=== PATIENT | male | born 1950 | race Hispanic/Latino ===

== ENCOUNTER → 2019-02-15 | Outpatient (CLI) | payer OTHER, MEDICARE ==
[~2019-02-15] MED LIST: HONEY 1 APPL/ML TUBE TP ONE; LIDOCAINE/PRILOCAINE CREAM 5GM TUBE TP ONE
[2019-02-15 11:53] VITALS: BP 155/69
== END | disposition home or self-care (01) ==
LOC: WHH 08:45
PROVIDERS: ATTEND Podiatrist Foot & Ankle Surgery
DX: E11.621 Type 2 diabetes mellitus with foot ulcer (principal); L97.521 Non-pressure chronic ulcer of other part of left foot limited to breakdown of skin; L97.421 Non-pressure chronic ulcer of left heel and midfoot limited to breakdown of skin; E11.40 Type 2 diabetes mellitus with diabetic neuropathy, unspecified; I25.10 Atherosclerotic heart disease of native coronary artery without angina pectoris
CPT/HCPCS: A4450; G0463; J3490; L3260

== ENCOUNTER → 2019-02-27 | Outpatient (CLI) | payer OTHER, MEDICARE | END | disposition home or self-care (01) | LOC: WHH 14:45 | PROVIDERS: ATTEND Podiatrist Foot & Ankle Surgery | DX: E11.621 Type 2 diabetes mellitus with foot ulcer (principal); L97.421 Non-pressure chronic ulcer of left heel and midfoot limited to breakdown of skin; L97.521 Non-pressure chronic ulcer of other part of left foot limited to breakdown of skin; I25.10 Atherosclerotic heart disease of native coronary artery without angina pectoris; E11.40 Type 2 diabetes mellitus with diabetic neuropathy, unspecified | CPT/HCPCS: 93923; G0463 ==

== ENCOUNTER → 2019-03-01 | Outpatient (CLI) | payer OTHER, MEDICARE ==
[~2019-03-01] MED LIST changes: -HONEY 1 APPL/ML TUBE TP ONE
[2019-03-01 13:41] VITALS: BP 148/63
== END | disposition home or self-care (01) ==
LOC: WHH 08:30
PROVIDERS: ATTEND Podiatrist Foot & Ankle Surgery
DX: E11.621 Type 2 diabetes mellitus with foot ulcer (principal); L97.522 Non-pressure chronic ulcer of other part of left foot with fat layer exposed; L97.421 Non-pressure chronic ulcer of left heel and midfoot limited to breakdown of skin; I25.10 Atherosclerotic heart disease of native coronary artery without angina pectoris; E11.40 Type 2 diabetes mellitus with diabetic neuropathy, unspecified
CPT/HCPCS: 11042; J3490

== ENCOUNTER → 2019-03-08 | Outpatient (CLI) | payer OTHER, MEDICARE ==
[2019-03-08 13:28] VITALS: BP 153/68
== END | disposition home or self-care (01) ==
LOC: WHH 08:30
PROVIDERS: ATTEND Podiatrist Foot & Ankle Surgery
DX: E11.621 Type 2 diabetes mellitus with foot ulcer (principal); L97.521 Non-pressure chronic ulcer of other part of left foot limited to breakdown of skin; L97.421 Non-pressure chronic ulcer of left heel and midfoot limited to breakdown of skin; I25.10 Atherosclerotic heart disease of native coronary artery without angina pectoris; E11.40 Type 2 diabetes mellitus with diabetic neuropathy, unspecified; E11.51 Type 2 diabetes mellitus with diabetic peripheral angiopathy without gangrene; Z87.891 Personal history of nicotine dependence
CPT/HCPCS: G0463

== ENCOUNTER → 2019-03-22 | Outpatient (CLI) | payer OTHER, MEDICARE ==
[2019-03-22 12:03] VITALS: BP 143/63
== END | disposition home or self-care (01) ==
LOC: WHH 08:45
PROVIDERS: ATTEND Podiatrist Foot & Ankle Surgery
DX: E11.621 Type 2 diabetes mellitus with foot ulcer (principal); L97.521 Non-pressure chronic ulcer of other part of left foot limited to breakdown of skin; L97.422 Non-pressure chronic ulcer of left heel and midfoot with fat layer exposed; I25.10 Atherosclerotic heart disease of native coronary artery without angina pectoris; E11.40 Type 2 diabetes mellitus with diabetic neuropathy, unspecified; E11.51 Type 2 diabetes mellitus with diabetic peripheral angiopathy without gangrene; Z87.891 Personal history of nicotine dependence
CPT/HCPCS: 11042; J3490

== ENCOUNTER → 2019-04-04 | Outpatient (CLI) | payer OTHER, MEDICARE | END | disposition home or self-care (01) | LOC: SHCH 08:34 | PROVIDERS: ATTEND Internal Medicine Cardiovascular Disease | DX: I87.2 Venous insufficiency (chronic) (peripheral) (principal); I70.292 Other atherosclerosis of native arteries of extremities, left leg; I70.201 Unspecified atherosclerosis of native arteries of extremities, right leg | CPT/HCPCS: 93925; 93970 ==

== ENCOUNTER → 2019-04-12 | Outpatient (CLI) | payer OTHER, MEDICARE ==
[2019-04-12 13:09] VITALS: BP 145/59
== END | disposition home or self-care (01) ==
LOC: WHH 08:00
PROVIDERS: ATTEND Podiatrist Foot & Ankle Surgery
DX: E11.621 Type 2 diabetes mellitus with foot ulcer (principal); L97.521 Non-pressure chronic ulcer of other part of left foot limited to breakdown of skin; L97.421 Non-pressure chronic ulcer of left heel and midfoot limited to breakdown of skin; E11.40 Type 2 diabetes mellitus with diabetic neuropathy, unspecified; E11.51 Type 2 diabetes mellitus with diabetic peripheral angiopathy without gangrene; I87.2 Venous insufficiency (chronic) (peripheral); I25.10 Atherosclerotic heart disease of native coronary artery without angina pectoris; Z87.891 Personal history of nicotine dependence
CPT/HCPCS: G0463; J3490

== ENCOUNTER → 2019-04-19 | Outpatient (CLI) | payer OTHER, MEDICARE ==
[2019-04-19 13:41] VITALS: BP 159/57
== END | disposition home or self-care (01) ==
LOC: WHH 08:35
PROVIDERS: ATTEND Podiatrist Foot & Ankle Surgery
DX: E11.621 Type 2 diabetes mellitus with foot ulcer (principal); L97.521 Non-pressure chronic ulcer of other part of left foot limited to breakdown of skin; L97.421 Non-pressure chronic ulcer of left heel and midfoot limited to breakdown of skin; E11.51 Type 2 diabetes mellitus with diabetic peripheral angiopathy without gangrene; E11.40 Type 2 diabetes mellitus with diabetic neuropathy, unspecified; I87.2 Venous insufficiency (chronic) (peripheral); I25.10 Atherosclerotic heart disease of native coronary artery without angina pectoris; Z87.891 Personal history of nicotine dependence
CPT/HCPCS: G0463; J3490

== ENCOUNTER → 2019-05-03 | Outpatient (CLI) | payer OTHER, MEDICARE ==
[2019-05-03 13:28] VITALS: BP 152/59
== END | disposition home or self-care (01) ==
LOC: WHH 08:25
PROVIDERS: ATTEND Podiatrist Foot & Ankle Surgery
DX: E11.621 Type 2 diabetes mellitus with foot ulcer (principal); L97.521 Non-pressure chronic ulcer of other part of left foot limited to breakdown of skin; L97.421 Non-pressure chronic ulcer of left heel and midfoot limited to breakdown of skin; E11.51 Type 2 diabetes mellitus with diabetic peripheral angiopathy without gangrene; E11.40 Type 2 diabetes mellitus with diabetic neuropathy, unspecified; I87.2 Venous insufficiency (chronic) (peripheral); I25.10 Atherosclerotic heart disease of native coronary artery without angina pectoris; Z87.891 Personal history of nicotine dependence; Z85.46 Personal history of malignant neoplasm of prostate
CPT/HCPCS: G0463

== ENCOUNTER → 2019-05-09 | Outpatient (CLI) | payer OTHER, MEDICARE ==
[~2019-05-09] VITALS: Ht 167.6 cm; Wt 58.5 kg
[~2019-05-09] MED LIST changes: -LIDOCAINE/PRILOCAINE CREAM 5GM TUBE TP ONE; +REGADENOSON 0.4 MG/5 ML PF SYG IVP SCH
== END | disposition home or self-care (01) ==
LOC: SHCH 08:25
PROVIDERS: ATTEND Internal Medicine Cardiovascular Disease
DX: I25.89 Other forms of chronic ischemic heart disease (principal); I20.9 Angina pectoris, unspecified
CPT/HCPCS: 78452; 93017; 96374; A9500 ×2; J2785

== ENCOUNTER 2019-06-05 05:37 | Day surgery (SDC) | payer OTHER, MEDICARE ==
[2019-06-02 11:30] VITALS: BP 150/57
[2019-06-02 12:02] LABS: EOSINOPHILS % (AUTO) 0.4 % (0.0-8.0); HEMATOCRIT 34.3 % (42-54); LYMPHOCYTES % (AUTO) 10.7 % (21.0-51.0); MEAN CORPUSCULAR HEMOGLOBIN 27.7 pg (27.0-33.0); MEAN CORPUSCULAR HGB CONC 33.5 g/dL (32.0-36.0); MEAN CORPUSCULAR VOLUME 82.7 fL (79-99); NEUTROPHILS % (AUTO) 79.9 % (40.0-77.0); PLATELET COUNT (AUTO) 414 K/uL (130-400); RED BLOOD CELL COUNT(AUTO) 4.15 MIL/uL (4.50-6.20); RED CELL DISTRIBUTION WIDTH 14.4 % (11.0-15.5); WHITE BLOOD COUNT (AUTO) 12.8 K/uL (4.8-10.8)
[2019-06-02 12:10] LABS: CREATININE 0.7 mg/dL (0.5-1.5); POTASSIUM 5.5 mmol/L (3.5-5.1)
[2019-06-02 12:19] LABS: INR 1.1 (0.85-1.15); PARTIAL THROMBOPLASTIN TIME 33.9 SEC (26.3-35.5); PROTHROMBIN TIME 11.5 SEC (9.6-11.6)
[2019-06-02 12:50] LABS: APPEARANCE,URINE Clear (CLEAR); BILIRUBIN,URINE Negative (NEGATIVE); COLOR,URINE Yellow (YELLOW); GLUCOSE, URINE (UA) Negative (NEGATIVE); KETONES,URINE Negative (NEGATIVE); LEUKOCYTE ESTERASE ,URINE Trace (NEGATIVE); NITRATE,URINE Negative (NEGATIVE); OCCULT BLOOD,URINE Negative (NEGATIVE); PH,URINE 7.5 (5.0-8.0); PROTEIN,URINE Negative (NEGATIVE)
[2019-06-02 13:11] LABS: BACTERIA,URINE Rare /HPF (None Seen); RBC,URINE 0-1 /HPF (0-1); SQUAMOUS EPITHELIAL CELL,UR 0-2 /HPF (0-2); WBC,URINE 0-1 /HPF (0-1)
--- NOTE | 2019-06-02 14:30 | NUR ---
ANTIBIOTIC DR. WONG REVIEWED PT'S MED REC, AWARE PT IS TAKING ANTIBIOTICS.
--- NOTE | 2019-06-02 14:31 | NUR ---
LABS ABNORMAL LABS REPORTED TO DR. Deven WONG , FURTHER ORDERS GIVEN AND WILL BE Carried out.
--- NOTE | 2019-06-02 16:33 | NUR ---
CONTACT PREC ISABEL OLIVERA INFECTION CONTROL NOTIFIED OF PT'S LEFT FOOT ULCER, COVERED, PER PT DRY AND NOT DRAINING, NO KNOWN HX OF MDRO'S, TREAT[place] [facility]. PER ISABEL, PLACE PT FOR CONTACT PRECAUTION, PROPHYLACTIC, WILL CALL WOUND CARE CENTER FOR ANY CULTURE RESULTS. JAROD [employer]ENDIZ OF [employer] COORDINATOR ALSO NOTIFIED.
[2019-06-05] VITALS (19 sets, daily range): BP systolic 139–161; BP diastolic 50–78
[~2019-06-05] VITALS: Ht 165.1 cm; Wt 54.4 kg
[~2019-06-05 05:37] MED LIST changes: +ACET-2743 PO; +ASPI-449 PO; +ATOR10TA69 PO; +CEPH500C2 PO; +DUTA0.5C17 PO; +GABA-531 PO; +IBUP200C5 PO; +LEVO750T46 PO; +METF-444 PO; +NAPR-1192 PO; -REGADENOSON 0.4 MG/5 ML PF SYG IVP SCH
--- NOTE | 2019-06-05 06:08 | NUR ---
PRE-PROCEDURE RECEIVED FROM HOME VIA W/C FOR SCHEDULED PERIPHERAL ANGIOGRAM/CSI TO LLE VIA [facility]FA APPROACH TO DAY 16. AWAKE IN NO ACUTE DISTRESS. C/O OF PAIN TO LEFT FOOT WHEN LYING FLAT, BUT IMPROVES WHEN SITTING ON EDGE OF BED. EXPLAINED TO PT AND FAMILY IN DETAIL THAT PT WOULD BE ON STRICT BEDREST AFTER PROCEDURE AND WOULD NOT BE ABLE SIT UP. VERBALIZED UNDERSTANDING. NON-HEALING WOULD PRESENT TO LEFT FOOT; DRESSING CLEAN, DRY, AND INTACT;HEEL PROTECTOR IN PLACE. PT USES WALKER AT HOME TO PREVENT WEIGHT-BEARING TO LEFT FOOT. CONNECTED TO CONTINUOUS CARDIOPULMONARY MONITORING. SIDE RAILS UP X2, BED IN LOWEST POSITION, AND CALL LIGHT W/IN REACH.
[2019-06-05] MEDS ORDERED: SODIUM CHLORIDE 0.9% 1000ML 1,000 ML IV ONE (06:18)
--- NOTE | 2019-06-05 07:15 | NUR ---
PROCEDURE TRANSFERRED TO [employer] SUPERVISOR VIA BED BY JAROD ALVARADO. AWAKE IN NO ACUTE DISTRESS.
[2019-06-05] MEDS ORDERED: NITROGLYCERIN 5 MG/ML 10 ML VIAL IV ONE (07:18)
[2019-06-05] MEDS ORDERED: HEPARIN SODIUM 1000UNIT/ML 10ML VIAL ONE (07:18)
[2019-06-05] MEDS ORDERED: LIDOCAINE HCL 2% 20ML ONE (07:19)
[2019-06-05] MEDS ORDERED: IODIXANOL 320 MG/ML 100 ML VIAL ONE (07:19)
[2019-06-05] MEDS ORDERED: FENTANYL CITRATE PF 50 MCG/1 ML 2ML VIAL ONE ×2 (07:35→08:42)
[2019-06-05] MEDS ORDERED: MIDAZOLAM HCL 1 MG/ML 2ML VIAL ONE ×2 (07:35→08:41)
[2019-06-05] MEDS ORDERED: SODIUM CHLORIDE 0.9% 1000ML 1,000 ML IV SCH (08:00)
--- NOTE | 2019-06-05 08:40 | NUR ---
ROUNDS DR. LOUISE IN TO SPEAK WITH REGARDING FINDINGS OF PROCEDURE AND PLAN TO CONSULT SURGEON DR. CUEVAS. VERBALIZED UNDERSTANDING. Addendum: 06/05/19 at 6046 by REESE TO RN RN WRONG PATIENT
--- NOTE | 2019-06-05 08:46 | NUR ---
POST-PROCEDURE RECEIVED FROM [employer] LAYER VIA BED S/P BILATERAL CAROTID ANGIOGRAM BY MARTÍN REYES RN. AWAKE IN NO ACUTE DISTRESS. CONNECTED TO CONTINUOUS CARDIOPULMONARY MONITORING. EDUCATED ON IMPORTANCE OF KEEPING RIGHT LEG STRAIGHT AND HEAD FLAT FOR 4HOURS. PT AND VERBALIZED UNDERSTANDING. SIDE RAILS UP X2, BED IN LOWEST POSITION, AND CALL LIGHT W/IN REACH. Addendum: 06/05/19 at 0923 by REESE TO RN RN WRONG PATIENT
[2019-06-05] MEDS ORDERED: CLOPIDOGREL BISULFATE 300 MG TAB ONE (09:15)
[2019-06-05] MEDS ORDERED: DEXTROSE 50%-WATER 50 ML DISP.SYRIN IV PRN (09:15)
[2019-06-05] MEDS ORDERED: NITROGLYCERIN 0.4 MG SL TAB SL PRN (09:15)
[2019-06-05] MEDS ORDERED: GLUCAGON 1MG KIT 1 MG ML IM PRN (09:15)
[2019-06-05] MEDS ORDERED: METOPROLOL TARTRATE 1 MG/ML 5ML VIAL IV PRN (09:15)
--- NOTE | 2019-06-05 09:15 | NUR ---
ROUNDS DR. CUEVAS IN TO SEE PATIENT. SURGICAL OPTION DISCUSSED WITH PT AND . BOTH VERBALIZED UNDERSTANDING. PLAN IS FOR PATIENT TO F/U WITH DR. LOUISE AND BE SCHEDULED FOR SURGERY. Addendum: 06/05/19 at 0922 by REESE TO RN RN WRONG PATIENT
--- NOTE | 2019-06-05 09:42 | NUR ---
POST-PROCEDURE RECEIVED FROM SUPERVISOR PASTE MIXING VIA BED BY ZEUS BECERRA RN. AWAKE IN NO ACUTE DISTRESS. C/O PAIN TO LEFT FOOT 5/10, BUT PT WITH CHRONIC PAIN TO LEFT LEG D/T CLAUDICATION. LEFT FOOT ELEVATED ON PILLOW. DRESSING TO LEFT FOTT CLEAN, DRY, AND INTACT. (NON-HEALING WOUND) CONNECTED TO CONTINUOUS CARDIOPULMONARY MONITORING. EDUCATED ON IMPORTANCE OF KEEPING RIGHT LEG STRAIGHT AND HEAD FLAT. EDUCATED ON PLAN TO PULL ARTERIAL LINE AT 1100. PT VERBALIZED UNDERSTANDING. SIDE RAILS UP X2, BED IN LOWEST POSITION, AND CALL LIGHT W/IN REACH.
[2019-06-05] MEDS ORDERED: ATROPINE SULFATE 0.1 MG/ML 10 ML SYG IVP ONE (10:36)
[2019-06-05] MEDS ORDERED: HYDRALAZINE HCL 20 MG/ML VIAL ONE (11:09)
[2019-06-05] MEDS ORDERED: ACETAMINOPHEN EXTRA STRENGTH 500 MG TABLET ONE (11:53)
--- NOTE | 2019-06-05 13:27 | NUR ---
ACTIVITY HOB ELEVATED TO 25 DEGREES. SITE W/O SIGNS OF BLEEDING;DSTAT DRESSING CLEAN, DRY, AND INTACT; SITE SOFT, NON-TENDER.
--- NOTE | 2019-06-05 13:48 | NUR ---
ACTIVITY UP TO CHAIR WITH STANDBY ASSIST X1. TOLERATED W/O COMPLICATIONS. CATH SITE W/O SIGNS OF BLEEDING;SITE SOFT, NON-TENDER; D-STAT DRESSING CLEAN, DRY, AND INTACT.
--- NOTE | 2019-06-05 14:26 | NUR ---
DISCHARGE DAY PT DISCHARGE INSTRUCTION SHEET, MED REC, AND PT SUMMARY REVIEWED WITH PT AND SUMMER CENTENO) INCLUDING IF PUNCTURE SITE STARTS BLEEDING APPLY DIRECT PRESSURE AND CALL 911. PT EDUCATED ON HOW TO CHECK CATH SITE FOR BLEEDING. EDUCATED ON NEW MEDICATION PLAVIX 75MG PO DAILY AND IMPORTANCE OF TAKING MEDICATION EVERYDAY. PT VERBALIZED UNDERSTANDING. OPPORTUNITY GIVEN TO ASK QUESTIONS. NO QUESTIONS OR CONCERNS VOICED.
--- NOTE | 2019-06-05 14:30 | NUR ---
DISCHARGE DISCHARGED VIA PTS PERSONAL W/C. AWAKE IN NO ACUTE DISTRESS.
[2019-06-06] MEDS ORDERED: CLOPIDOGREL BISULFATE 75 MG TAB PO SCH (09:00)
== END 2019-06-05 14:30 | disposition home or self-care (01) ==
LOC: DAH 05:37
PROVIDERS: ATTEND Internal Medicine Cardiovascular Disease
DX: I70.212 Atherosclerosis of native arteries of extremities with intermittent claudication, left leg (principal); E78.5 Hyperlipidemia, unspecified; E11.51 Type 2 diabetes mellitus with diabetic peripheral angiopathy without gangrene; Z79.84 Long term (current) use of oral hypoglycemic drugs; Z79.899 Other long term (current) drug therapy; Z85.46 Personal history of malignant neoplasm of prostate; Z98.890 Other specified postprocedural states; Z87.891 Personal history of nicotine dependence; Z79.82 Long term (current) use of aspirin; Z79.2 Long term (current) use of antibiotics; Z79.01 Long term (current) use of anticoagulants
CPT/HCPCS: 36415 ×2; 37221; 71045; 75630; 80048; 81001; 82948 ×2; 84132; 85025; 85610; 85730; 93005; A4215; A4216; A4221; A4222; A4223 ×3; A4606; C1725; C1769 ×3; C1874; C1887; C1893; C1894 ×2; J0360; J1644 ×2; J2250 ×2; J3010 ×2; J3490 ×2; J7030; Q9967; 99156; 99157; J0461

== ENCOUNTER 2019-09-06 05:50 | Day surgery (SDC) | payer OTHER, MEDICARE ==
[2019-08-30 09:39] VITALS: BP 147/61
[2019-08-30 09:48] LABS: BASOPHILS % (AUTO) 0.5 % (0.0-5.0); EOSINOPHILS % (AUTO) 1.3 % (0.0-8.0); HEMATOCRIT 31.3 % (42-54); LYMPHOCYTES % (AUTO) 13.1 % (21.0-51.0); MEAN CORPUSCULAR HEMOGLOBIN 23.7 pg (27.0-33.0); MEAN CORPUSCULAR HGB CONC 29.7 g/dL (32.0-36.0); MEAN CORPUSCULAR VOLUME 79.6 fL (79-99); MONOCYTES % (AUTO) 6.4 % (3.0-13.0); NEUTROPHILS % (AUTO) 78.4 % (40.0-77.0); PLATELET COUNT (AUTO) 337 K/uL (130-400); RED BLOOD CELL COUNT(AUTO) 3.93 MIL/uL (4.50-6.20); RED CELL DISTRIBUTION WIDTH 15.8 % (11.0-15.5); WHITE BLOOD COUNT (AUTO) 11.5 K/uL (4.8-10.8)
[2019-08-30 09:55] LABS: CREATININE 0.6 mg/dL (0.5-1.5); POTASSIUM 5.3 mmol/L (3.5-5.1)
[2019-08-30 09:56] LABS: INR 1.05 (0.85-1.15); PARTIAL THROMBOPLASTIN TIME 32.5 SEC (26.3-35.5)
[2019-08-30 10:07] LABS: APPEARANCE,URINE Clear (CLEAR); BILIRUBIN,URINE Negative (NEGATIVE); COLOR,URINE Yellow (YELLOW); GLUCOSE, URINE (UA) Negative (NEGATIVE); KETONES,URINE Negative (NEGATIVE); LEUKOCYTE ESTERASE ,URINE Negative (NEGATIVE); NITRATE,URINE Negative (NEGATIVE); OCCULT BLOOD,URINE Negative (NEGATIVE); PH,URINE 7.5 (5.0-8.0); PROTEIN,URINE Trace mg/dL (NEGATIVE)
[2019-08-30 10:37] LABS: BACTERIA,URINE Rare /HPF (None Seen); RBC,URINE 0-1 /HPF (0-1); SQUAMOUS EPITHELIAL CELL,UR Rare /HPF (0-2); WBC,URINE 0-1 /HPF (0-1)
--- NOTE | 2019-09-01 20:27 | NUR ---
NOTIFIED DR. WONG OF ABNORMAL LABS, AND ABNORMAL EKG. RE-DRAW POTASSIUM IN THE MORNING. DR. WONG TO CLARIFY DATE OF SERVICE ON ORDER. DATE IS NOT CORRECT.
[2019-09-04 10:51] VITALS: BP 175/92
[2019-09-04 12:40] LABS: HEMATOCRIT 30.1 % (42-54)
--- NOTE | 2019-09-04 14:00 | NUR ---
NOTE PROCEDURE ABORTED, RESCHEDULED FOR 09/06/19, PT INSTRUCTED [place] [facility] [place] FOLLOW SAME PRE-OP INSTRUCTIONS. VERBALIZED UNDERSTANDING. PT DISCHARGED VIA WHEELCHAIR WITH DAUGHTER. PT STABLE.
[~2019-09-06] VITALS: Ht 167.6 cm; Wt 56.7 kg
[2019-09-06] VITALS (21 sets, daily range): BP systolic 138–185; BP diastolic 45–72
[~2019-09-06 05:50] MED LIST changes: -ACET-2743 PO; +ACET1TAB12 PO; +CELE-84 PO; -CEPH500C2 PO; +CLOP75TA14 PO; -DUTA0.5C17 PO; +FENTANYL CITRATE PF 50 MCG/1 ML 2ML VIAL ONE; -GABA-531 PO; +HEPARIN SODIUM 1000UNIT/ML 10ML VIAL ONE; -IBUP200C5 PO; +IODIXANOL 320 MG/ML 100 ML VIAL ONE; -LEVO750T46 PO; +LIDOCAINE HCL 2% 20ML ONE; +MIDAZOLAM HCL 1 MG/ML 2ML VIAL ONE; -NAPR-1192 PO; +SODIUM CHLORIDE 0.9% 1000ML 1,000 ML IV ONE; +SODIUM CHLORIDE 0.9% 500ML 500 ML IV SCH; +TRAM50TA4 PO
[2019-09-06] MEDS ORDERED: SODIUM CHLORIDE 0.9% 1000ML 1,000 ML IV ONE (06:52)
[2019-09-06] MEDS ORDERED: IODIXANOL 320 MG/ML 100 ML VIAL ONE (07:08)
[2019-09-06] MEDS ORDERED: NITROGLYCERIN 1 MG/VIAL VIAL IV ONE ×2 (07:08→07:10)
[2019-09-06] MEDS ORDERED: LIDOCAINE HCL 2% 20ML ONE (07:08)
[2019-09-06] MEDS ORDERED: MIDAZOLAM HCL 1 MG/ML 2ML VIAL ONE (07:08)
[2019-09-06] MEDS ORDERED: HEPARIN SODIUM 1000UNIT/ML 10ML VIAL ONE (07:08)
[2019-09-06] MEDS ORDERED: FENTANYL CITRATE PF 50 MCG/1 ML 2ML VIAL ONE ×3 (07:11→11:01)
--- NOTE | 2019-09-06 07:18 | NUR ---
CIRCULATION: UNABLE TO PALPATE LEFT DORSALIS PULSE OR USE DOPPLER DUE TO HEAVY DRESSING TO LEFT FOOT.
--- NOTE | 2019-09-06 07:19 | NUR ---
POTENTIAL FOR INFECTION: NO SHAVING NEEDED ASSESSED PER JING ELLIS, PT HAD BEEN SHAVED ON 09/04/19. WIPED BILATERAL GROIN AREA TO ABOVE BILATERAL KNEE WITH OLGA: 2% CHLORHEXIDINE GLUCONATE CLOTH PATIENTS PRE-OP SKIN PREP PER JING ELLIS.
[2019-09-06] MEDS ORDERED: PROPOFOL 10 MG/ML 20ML VIAL IV ONE (07:44)
[2019-09-06] MEDS ORDERED: LIDOCAINE HCL 1% 20 ML VIAL ONE (07:44)
[2019-09-06] MEDS ORDERED: MIDAZOLAM HCL 1 MG/ML 5ML VIAL ONE (07:44)
[2019-09-06] MEDS ORDERED: KETAMINE 50MG/ML SYRINGE 50 MG/ML DISP.SYRIN IV ONE (07:45)
[2019-09-06] MEDS ORDERED: ACETAMINOPHEN-CODEINE 300/30MG TAB PO PRN (09:30)
[2019-09-06] MEDS ORDERED: DEXTROSE 50%-WATER 50 ML DISP.SYRIN IV PRN (09:30)
[2019-09-06] MEDS ORDERED: GLUCAGON 1MG KIT 1 MG ML IM PRN (09:30)
[2019-09-06] MEDS ORDERED: HYDRALAZINE HCL 20 MG/ML VIAL ONE (09:57)
[2019-09-06] MEDS ORDERED: INSULIN HUMULIN R 100 UNIT/ML 3ML SQ SCH (11:30)
== END 2019-09-06 16:20 | disposition home or self-care (01) ==
LOC: DAH 05:50
PROVIDERS: ATTEND Internal Medicine Cardiovascular Disease
DX: E11.621 Type 2 diabetes mellitus with foot ulcer (principal); L97.429 Non-pressure chronic ulcer of left heel and midfoot with unspecified severity; E78.5 Hyperlipidemia, unspecified; Z79.1 Long term (current) use of non-steroidal anti-inflammatories (NSAID); Z79.84 Long term (current) use of oral hypoglycemic drugs; Z79.899 Other long term (current) drug therapy; Z98.890 Other specified postprocedural states; Z79.82 Long term (current) use of aspirin; Z87.891 Personal history of nicotine dependence; Z79.01 Long term (current) use of anticoagulants
CPT/HCPCS: 36005; 36140; 36415; 71045; 75710; 80048; 81001; 82948; 84132; 85014; 85018; 85025; 85610; 85730; 93005; A4606; C1725; C1769; C1894; J0360; J1644; J2250; J2704; J3010; J3490; J7030; Q9967